=== PATIENT | male | born 1985 | race Caucasian/White ===

== ENCOUNTER 2016-12-31 13:33 | Inpatient (IN) | payer OTHER ==
[~2016-12-31] VITALS: Ht 175.3 cm; Wt 127.5 kg
[~2016-12-31 13:33] MED LIST: HYDR-4446 PO; LISI10TA11 PO; METF500T2 PO; SULF1TAB12 PO
[2016-12-31 13:46] VITALS: BP 153/91
[2016-12-31] MEDS ORDERED: CLINDAMYCIN 600 MG in DEXTROSE 5% 50 ML IV ONE (15:35)
[2016-12-31] MEDS ORDERED: CLINDAMYCIN 600 MG/4 ML VIAL ONE (15:54)
[2016-12-31] MEDS ORDERED: POTASSIUM CHL 20 MEQ/D5-1/2NS 1,000 ML IV ONE (16:00)
[2016-12-31] MEDS ORDERED: PIPERACILLIN/TAZOBACTAM 3.375 GM in DEXTROSE 5% 50 ML IV ONE (16:00)
[2016-12-31] MEDS ORDERED: VANCOMYCIN 1,000 MG in DEXTROSE 5% 250 ML IV ONE (16:00)
[2016-12-31] MEDS ORDERED: PIPERACILLIN/TAZOBACTAM 3.375 GM VIAL IV ONE ×2 (16:11→21:54)
[2016-12-31] MEDS ORDERED: VANCOMYCIN 1,000 MG VIAL ONE (16:11)
[2016-12-31 16:18] LABS: MONOCYTES # (AUTO) 0.5 K/uL (0.8-1.0)
[2016-12-31 16:22] LABS: BASOPHILS # (AUTO) 0.5 K/uL (0.00-0.22); EOSINOPHILS # (AUTO) 0.5 K/uL (0-0.4); HEMATOCRIT 48.1 % (36-52); LYMPHOCYTES # (AUTO) 2.4 K/uL (2.0-11.5); MEAN CORPUSCULAR HEMOGLOBIN 30 pg (27-31); MEAN CORPUSCULAR HGB CONC 33 g/dL (33-37); MEAN CORPUSCULAR VOLUME 89 fL (80-94); NEUTROPHILS # (AUTO) 7.2 K/uL (1.8-7.7); PLATELET COUNT (AUTO) 251 K/uL (140-450); RED BLOOD CELL COUNT(AUTO) 5.39 MIL/uL (4.20-6.10); RED CELL DISTRIBUTION WIDTH 12.1 % (11.6-13.7); WHITE BLOOD COUNT (AUTO) 11.1 K/uL (4.8-10.8)
[2016-12-31 16:30] LABS: ANION GAP 13.7 (8-16); CALCIUM 8.8 mg/dL (8.5-10.1); CREATININE 0.8 mg/dL (0.7-1.3); POTASSIUM 3.7 mmol/L (3.5-5.1)
[2016-12-31] MEDS ORDERED: ONDANSETRON 4 MG/2 ML VIAL IVP PRN (16:30)
[2016-12-31] MEDS ORDERED: VANCOMYCIN PER PHARMACY MC PRN (16:30)
[2016-12-31] MEDS ORDERED: HYDROcodone/APAP 5/325 MG 1 TAB TAB PO PRN ×2 (16:30)
[2016-12-31] MEDS ORDERED: ACETAMINOPHEN 325 MG TAB PO PRN (16:30)
[2016-12-31] MEDS ORDERED: MORPHINE SULFATE 2 MG/ML SYR IVP PRN (16:30)
[2016-12-31 16:33] LABS: PARTIAL THROMBOPLASTIN TIME 27.7 secs (22-35.6); PROTHROMBIN TIME 10.4 secs (10.8-13.4)
[2016-12-31] MEDS ORDERED: DEXTROSE 50% 50 ML SYR IVP PRN (16:35)
[2016-12-31 17:30] VITALS: BP 139/84
[2016-12-31] MEDS: VANCOMYCIN 1,250 MG in DEXTROSE 5% 250 ML IV SCH (18:20)
[2016-12-31 20:00] VITALS: BP 135/76
[2016-12-31] MEDS ORDERED: PIPERACILLIN/TAZOBACTAM 3.375 GM in DEXTROSE 5% 50 ML IV SCH (21:00)
[2016-12-31] MEDS: BLOOD GLUCOSE MONITORING 1 DEV DEV FS SCH (21:18)
[2016-12-31] MEDS: INSULIN LISPRO SLIDING SCALE 100 UNITS/ML VIAL SUBQ PRN (21:19)
[2016-12-31] MEDS ORDERED: PIPER/TAZO 3.375GM/D5W PREMIX 50 ML IV SCH (22:30)
[2017-01-01] VITALS: BP 134/76
[2017-01-01] MEDS: VANCOMYCIN 1,250 MG in DEXTROSE 5% 250 ML IV SCH ×3 (01:44→18:09)
[2017-01-01] MEDS ORDERED: PIPERACILLIN/TAZOBACTAM 3.375 GM VIAL IV ONE (04:27)
[2017-01-01] MEDS: PIPER/TAZO 3.375GM/D5W PREMIX 50 ML IV SCH ×2 (05:01→12:19)
[2017-01-01 06:41] LABS: HEMATOCRIT 43.8 % (36-52); HEMOGLOBIN 14.6 g/dL (12.0-18.0); MEAN CORPUSCULAR HEMOGLOBIN 30 pg (27-31); MEAN CORPUSCULAR HGB CONC 33 g/dL (33-37); MEAN CORPUSCULAR VOLUME 89 fL (80-94); PLATELET COUNT (AUTO) 209 K/uL (140-450); RED BLOOD CELL COUNT(AUTO) 4.93 MIL/uL (4.20-6.10); RED CELL DISTRIBUTION WIDTH 12.4 % (11.6-13.7); WHITE BLOOD COUNT (AUTO) 8.8 K/uL (4.8-10.8)
[2017-01-01] MEDS: BLOOD GLUCOSE MONITORING 1 DEV DEV FS SCH ×4 (06:45→21:39)
[2017-01-01] MEDS: INSULIN LISPRO SLIDING SCALE 100 UNITS/ML VIAL SUBQ PRN ×3 (06:47→16:07)
[2017-01-01 07:03] LABS: ALBUMIN 3.1 g/dL (3.4-5.0); ANION GAP 11.2 (8-16); CALCIUM 8.6 mg/dL (8.5-10.1); CARBON DIOXIDE 25.5 mmol/L (21-32); CREATININE 0.9 mg/dL (0.7-1.3); MAGNESIUM 1.8 mg/dL (1.8-2.4); POTASSIUM 3.7 mmol/L (3.5-5.1); TOTAL BILIRUBIN 0.7 mg/dL (0.0-1.0); TOTAL PROTEIN, SERUM 7.9 g/dL (6.4-8.2)
[2017-01-01 07:37] LABS: BAND % (MANUAL) 1 % (0-8); EOSINOPHILS % (MANUAL) 2 % (0-4); LYMPHOCYTES % (MANUAL) 26 % (20-46); MONOCYTES % (MANUAL) 10 % (5-12); NEUTROPHILS % (MANUAL) 61 (43-65)
[2017-01-01 08:00] VITALS: BP 119/73
[2017-01-01] MEDS ORDERED: LISINOPRIL 20 MG TAB PO SCH (09:00)
[2017-01-01 16:00] VITALS: BP 141/76
== END 2017-01-01 20:50 | disposition left against medical advice (07) | DRG 385 ==
LOC: MED 13:33 → MTU 16:33
PROVIDERS: ADMIT Hospitalist; ATTEND Hospitalist
DX: L73.2 Hidradenitis suppurativa (principal); Z68.41 Body mass index [BMI] 40.0-44.9, adult; I10 Essential (primary) hypertension; E11.9 Type 2 diabetes mellitus without complications; E66.01 Morbid (severe) obesity due to excess calories; Z53.21 Procedure and treatment not carried out due to patient leaving prior to being seen by health care provider; Z83.3 Family history of diabetes mellitus
CPT/HCPCS: 36415; 80048; 80053; 80202; 82948; 83735; 85025; 85610; 85730; 87040; 87081; 96365; 99285; J1815; J2543; J3370; J3490; J7060